=== PATIENT | male | born 1955 | race Caucasian/White ===

== ENCOUNTER → 2016-10-12 | Outpatient (CLI) | payer BC ==
--- NOTE | 2016-10-13 07:07 | XR ---
EXAMINATION TYPE: XR cervical spine comp DATE OF EXAM: 10/12/2016 3:53 PM TECHNIQUE: Frontal, lateral, oblique, swimmers, and open mouth view of the cervical spine are obtaine d. HISTORY: Anterior cortex Field for COMPARISON: None FINDINGS: The cervical spine is visualized in its entirety from C1 thru the top of T1 level, it is s traightened in alignment without evidence of acute fracture or dislocation. The pre-vertebral soft t issue appears within normal limits. The C1-C2 articulation is within normal limits on the open mouth view. Vertebral body heights and disc space heights are maintained. There is prominent spur from th e anterior inferior C5 vertebral body level. The oblique images are within normal limits. Overlying s oft tissue is unremarkable. IMPRESSION: Straightening of cervical spine with prominent spurring anterior inferior C5 vertebral bryant dy level.
== END | disposition home or self-care (01) ==
LOC: RADXRYALE 15:28
PROVIDERS: ATTEND Physician Assistant Medical
DX: M46.02 Spinal enthesopathy, cervical region (principal); M54.2 Cervicalgia
CPT/HCPCS: 72050

== ENCOUNTER → 2016-10-23 | Outpatient (CLI) | payer BC ==
--- NOTE | 2016-10-23 16:45 | US ---
EXAMINATION TYPE: US thyroid st tissue head/neck DATE OF EXAM: 10/23/2016 3:55 PM COMPARISON: 07/07/2016 CLINICAL HISTORY: 61-year-old male E04.1 Thyroid Nodule. Follow up on thyroid nodules GLAND SIZE: Right Lobe: 4.0 x 2.1 x 1.6 cm Left Lobe: 4.1 x 1.7 x 1.3 cm Isthmus Thickness: 0.4 cm Overall Parenchyma: homogeneous NODULES RIGHT: # of nodules measured on right: 1 1. 0.3 X 0.3 x 0.2 cm cyst at the lower pole. Prior size: 0.6 x 0.5 cm LEFT: # of nodules measured on left: 1 1. 0.4 X 0.3 x 0.2 cm hypoechoic solid nodule at the mid pole with well-defined margins. This nodu le is taller than wide and shows intranodular vascularity. Prior size: 0.3 x 0.2 cm ISTHMUS: # of nodules measured in the isthmus: 0 Bilateral neck scanned, no abnormal lymphadenopathy noted. IMPRESSION: A single nodule on each side characterized by a 3 mm cyst on the right, decreased in size, and a tiny 4 mm solid nodule on the left, not significantly changed.
== END ==
LOC: RADUSMAIN 15:32
PROVIDERS: ATTEND Family Medicine
DX: E04.2 Nontoxic multinodular goiter (principal)
CPT/HCPCS: 76536

== ENCOUNTER 2017-02-22 08:20 | Day surgery (SDC) | payer BC ==
[2017-02-19 08:33] VITALS: BMI 38.0
[~2017-02-22 08:20] MED LIST: LACTATED RINGERS 1,000 ML IV SCH; LIDOCAINE 1% 20 ML VIAL (10MG/ML) FOR IV START INTRADERMA PRN
[2017-02-22 08:31] VITALS: RESP 16; TEMP 99.1
[2017-02-22] MEDS ORDERED: PROPOFOL 10 MG/ML 20 ML VIAL IV ONE (09:36)
--- NOTE | 2017-02-22 10:02 | P.PCN ---
Date of Procedure: 02/22/17 Preoperative Diagnosis: Postoperative Diagnosis: Procedure(s) Performed: Procedure: Total colonoscopy. Preoperative diagnosis: Screening for neoplasia. Postoperative diagnosis: Diverticulosis with no evidence of acute diverticulitis , strictures, significant polyps or cancer. Preparation: HalfLytely prep. Sedation: Was provided by anesthesia. Brief clinical history: The patient is a 61-year-old male who is referred for this evaluation for screening for neoplasia age being his risk factor. He has no abdominal complaints, bleeding or anemia or any family history of colon cancer. This would be his first colonoscopy. Procedure: With the patient on his left lateral decubitus position and after informed consent and adequate sedation, the perianal area was inspected and it did not show any fissures or fistulas. There were no masses felt on digital rectal examination. The Olympus CFQ 160L video colonoscope was then inserted in the rectum in the usual fashion and advanced to the cecum. There were several small diverticular orifices noted some in the sigmoid and some on the right side with no evidence of acute diverticulitis or strictures. The mucosa appeared healthy. No significant polyps or tumors were seen. I retroflexed the endoscope in the rectum before the endoscope was withdrawn. The patient tolerated the procedure well. Plan: The patient was reassured. Discussed dietary measures. He will follow up with you as planned and I recommended a repeat exam in around 10 years. Implants: Indications for Procedure: Operative Findings: Description of Procedure:
[2017-02-22 10:17] VITALS: BP 145/86; PULSE 61
== END 2017-02-22 10:43 | disposition home or self-care (01) ==
LOC: ORWHC2ENDO 08:20
DX: Z12.11 Encounter for screening for malignant neoplasm of colon (principal); K57.30 Diverticulosis of large intestine without perforation or abscess without bleeding; E78.5 Hyperlipidemia, unspecified; Z79.899 Other long term (current) drug therapy
CPT/HCPCS: J2704; G0121

== ENCOUNTER → 2017-04-26 | Outpatient (CLI) | payer BC ==
--- NOTE | 2017-04-26 15:11 | US ---
EXAMINATION TYPE: US thyroid st tissue head/neck DATE OF EXAM: 04/26/2017 COMPARISON: US CLINICAL HISTORY: E04.1 Thyroid Nodule. Follow up thyroid nodules GLAND SIZE: Right Lobe: 5.4 x 1.6 x 2.2 cm Overall Parenchyma: somewhat heterogeneous Left Lobe: 4.3 x 1.0 x 1.4 cm Overall Parenchyma: somewhat heterogeneous Isthmus Thickness: 0.5 cm NODULES RIGHT: # of nodules measured on right: 0 LEFT: # of nodules measured on left: 1 1. 0.5 X 0.2 x 0.3 cm hypoechoic solid nodule at the mid pole with well-defined margins. This nodul e is wider than tall and shows no intranodular vascularity. Prior size: 0.4 x 0.2 x 0.3 cm ISTHMUS: # of nodules measured in the isthmus: 0 Bilateral neck scanned, no evidence of lymphadenopathy. Slightly enlarged right lobe and somewhat heterogeneous thyroid with previous right lobe nodule not s een on today's exam, left lobe nodule seen on today's exam. IMPRESSION: 1. Similar size of a single subcentimeter left thyroid nodule in comparison to the prior exam. 2. Mildly enlarged and slightly heterogenous right lobe of the thyroid. The previously seen right thy roid cyst that was decreasing in size is no longer visualized.
== END | disposition home or self-care (01) ==
LOC: RADUSWWP 14:39
PROVIDERS: ATTEND Family Medicine
DX: E04.1 Nontoxic single thyroid nodule (principal); E04.9 Nontoxic goiter, unspecified
CPT/HCPCS: 76536

== ENCOUNTER → 2019-01-05 | Outpatient (CLI) | payer BC ==
--- NOTE | 2019-01-06 07:00 | US ---
EXAMINATION TYPE: US thyroid st tissue head/neck DATE OF EXAM: 01/05/2019 COMPARISON: 2017 CLINICAL HISTORY: E04.1 Nontoxic single thyroid nodule. GLAND SIZE: Right Lobe: 4.9 x 1.7 x 1.8 cm Overall Parenchyma: homogenous Left Lobe: 4.9 x 1.2 x 1.2 cm Overall Parenchyma: homogeneous Isthmus Thickness: 0.3 cm NODULES RIGHT: # of nodules measured on right: 0 LEFT: # of nodules measured on left: 1 1. 0.4 X 0.2 x 0.2 cm solid nodule at the mid pole with well-defined margins; . This nodule is wid er than tall and shows no intranodular vascularity. Prior size: 0.5 x 0.2 x 0.3 cm ISTHMUS: # of nodules measured in the isthmus: 0 Bilateral neck scanned, no evidence of lymphadenopathy. IMPRESSION: Stable subcentimeter thyroid nodule left thyroid lobe.
== END ==
LOC: RADUSWWP 15:52
PROVIDERS: ATTEND Physician Assistant Medical
DX: E04.1 Nontoxic single thyroid nodule (principal)
CPT/HCPCS: 76536

== ENCOUNTER → 2020-02-19 | Outpatient (CLI) | payer BC ==
--- NOTE | 2020-02-19 21:45 | US ---
EXAMINATION TYPE: US thyroid st tissue head/neck DATE OF EXAM: 02/19/2020 COMPARISON: US 01/05/2019 CLINICAL HISTORY: E04.1 NONTOXIC SINGLE THYROID NODULE. GLAND SIZE: Right Lobe: 3.8 x 1.4 x 1.7 cm Overall Parenchyma: homogenous Left Lobe: 3.5 x 0.9 x 1.2 cm Overall Parenchyma: homogeneous Isthmus Thickness: 0.4 cm NODULES RIGHT: # of nodules measured on right: 0 LEFT: # of nodules measured on left: 1 1. 0.4 X 0.2 x 0.3 cm hypoechoic mixed nodule at the mid pole with well-defined margins; . This no dule is wider than tall and shows no intranodular vascularity. Prior size: 0.4 x 0.2 x 0.2 cm ISTHMUS: # of nodules measured in the isthmus: 0 Bilateral neck scanned, no evidence of lymphadenopathy. Homogeneous small size thyroid measuring smaller in size versus prior with stable 4 mm right-sided th yroid nodule. IMPRESSION: As above. Small thyroid without new or enlarging greater than 1 cm nodule identified.
== END | disposition home or self-care (01) ==
LOC: RADUSWWP 16:04
PROVIDERS: ATTEND Family Medicine
DX: E04.1 Nontoxic single thyroid nodule (principal)
CPT/HCPCS: 76536

== ENCOUNTER → 2020-03-27 | Outpatient (CLI) | payer BC ==
--- NOTE | 2020-03-27 17:14 | US ---
EXAMINATION TYPE: US carotid duplex BILAT DATE OF EXAM: 03/27/2020 COMPARISON: NONE CLINICAL HISTORY: I10 hypertension R11.0 nausea. HTN controlled with meds. No hx tia. Nonsmoker. EXAM MEASUREMENTS: RIGHT: Peak Systolic Velocity (PSV) cm/sec ----- Right CCA: 78.8 ----- Right ICA: 71.3 ----- Right ECA: 149.4 ICA/CCA ratio: 0.9 RIGHT: End Diastole cm/sec ----- Right CCA: 16.7 ----- Right ICA: 19.7 ----- Right ECA: 19.5 LEFT: Peak Systolic Velocity (PSV) cm/sec ----- Left CCA: 103.2 ----- Left ICA: 73.9 ----- Left ECA: 117.3 ICA/CCA ratio: 0.7 LEFT: End Diastole cm/sec ----- Left CCA: 19.2 ----- Left ICA: 25.5 ----- Left ECA: 17.1 VERTEBRALS (direction of flow): Right Vertebral: Antegrade Left Vertebral: Antegrade Rhythm: Normal Elevated right ECA. No significant stenosis. No wall thickening. Small amount of plaque seen in an terior proximal right ECA. IMPRESSION: 1. No significant flow-limiting stenosis bilateral carotid bifurcations. Criteria for Assigning % of Stenosis / Diameter reduction (Estimation based on the indirect measurements of the internal carotid artery velocities (ICA PSV). 1. Normal (no stenosis)=ICA PSV < 125 cm/s: ratio < 2.0: ICA EDV<40 cm/s. 2. Less than 50% stenosis=ICA PSV < 125 cm/s: ratio < 2.0: ICA EDV<40 cm/s. 3. 50 to 69% stenosis=ICA PSV of 125 to 230 cm/s: ration 2.0 ? 4.0: ICA EDV 40-100 cm/s. 4. Greater than 70% stenosis to near occlusion= ICA PSV > 230 cm/s: ratio > 4.0: ICA EDV > 100 cm/s. 5. Near occlusion= ICA PSV velocities may be low or undetectable: variable ratio and ICA EDV. 6. Total occlusion=unable to detect flow.
== END | disposition home or self-care (01) ==
LOC: RADUSWWP 12:49
PROVIDERS: ATTEND Family Medicine
DX: I65.21 Occlusion and stenosis of right carotid artery (principal); E78.2 Mixed hyperlipidemia; R11.0 Nausea
CPT/HCPCS: 93880